=== PATIENT | female | born 1975 | race Caucasian/White ===

== ENCOUNTER 2017-06-24 19:34 | Emergency (ER) | payer OTHER, SELFPAY ==
[2017-06-24 19:41] VITALS: BP 149/89; PULSE 93; RESP 16; TEMP 36.8; O2SAT 97; BMI 36.1
[2017-06-24 20:12] LABS: Microscopic, Urine URINE MICROSCOPIC (MICROSCOPIC)
[2017-06-24 20:15] LABS: Basophils # 0.1 K/mm3 (0-0.2); Basophils % 0.9 % (0.1-2.0); Eosinophils # 0.5 K/mm3 (0.0-0.4); Eosinophils % 4.7 % (0.1-12.0); Hematocrit 42.8 % (37.0-47.0); Hemoglobin 14.4 g/dL (12.2-16.2); Lymphocytes # 2.6 K/mm3 (0.7-4.5); Lymphocytes % 27.9 K/mm3 (10-50); Mean Corpuscular HGB Conc 33.5 g/dL (31.8-35.4); Mean Corpuscular Hemoglobin 32.3 pg (27.0-31.2); Mean Corpuscular Volume 96.3 fl (81-99); Mean Platelet Volume 8.4 fl (7.4-10.4); Monocytes # 0.6 K/mm3 (0.1-1.0); Monocytes % 6.5 % (1.7-9.3); Neutrophils # 5.7 K/mm3 (1.8-7.8); Neutrophils % 60.1 % (37.0-80.0); Platelet Count 313 K/mm3 (142-424); Red Blood Count 4.45 M/mm3 (4.20-5.40); Red Cell Distribution Width 13.2 % (11.5-17.5); White Blood Count 9.5 K/mm3 (4.8-10.8)
--- NOTE | 2017-06-24 20:19 | CT_ITS ---
CT abdomen pelvis wo con CLINICAL INDICATION: Left-sided abdominal pain with vomiting. Prior gastric sleeve surgery ITS.REASON: ABD PAIN ORDERING PHYSICIAN: Tres Baez MD PATIENT AGE: 42 years COMPARISON: 06/04/2016 TECHNIQUE: Axial images obtained with sagittal and coronal reformats. PROCEDURE: Oral Contrast: None IV Contrast: None . FINDINGS: Lung bases are clear. The liver, gallbladder, spleen, adrenal glands, and pancreas are unremarkable. There has been prior gastric sleeve surgery. No renal calculi or hydronephrosis. No ureteral calculi. Unremarkable appendix. No intestinal obstruction or free air. There is a mild amount retained colonic feces. No evidence of diverticulitis. Prior hysterectomy. Isodense changes are present in the right adnexa specious for an ovarian cyst at 2.7 cm. This could be confirmed with pelvic ultrasound. No acute bony anomalies. IMPRESSION: 1. No acute finding. 2. Possible right ovarian cyst
[2017-06-24 20:22] LABS: Appearance,Urine CLEAR (Clear); Bilirubin,Urine Negative (Negative); Blood, Urine TRACE-I (Negative); Color,Urine YELLOW (Yellow); Glucose,Urine (UA) Negative (Negative); Ketones,Urine Negative (Negative); Leukocyte Esterase,Urine Negative (Negative); Nitrate,Urine Negative (Negative); Protein,Urine Negative (Negative); Specific Gravity, Urine <= 1.005 (1.005-1.030); Urobilinogen,Urine 0.2 EU/dl (0.2)
[2017-06-24 20:24] LABS: Amorphous Sediment,Urine Trace /lpf; RBC,Urine Occasional #/hpf (0-3)
[2017-06-24 20:31] LABS: Alanine Aminotransferase 19 U/L (12-78); Albumin Level 3.7 gm/dL (3.4-5.0); Albumin/Globulin Ratio 0.9 (1.1-1.8); Alkaline Phosphatase 92 U/L (46-116); Amylase 55 U/L (25-125); Anion Gap 9.9 mEq/L (5-15); Aspartate Amino Transferase 6 U/L (15-37); Bilirubin,Total 0.1 mg/dL (0.2-1.0); Blood Urea Nitrogen 13 mg/dL (7-18); Calcium 9.2 mg/dL (8.5-10.1); Carbon Dioxide 29 mmol/L (21.0-32.0); Chloride 106 mmol/L (98-107); Creatinine Clearance Estimated 202 mL/min (0-300); Creatinine,Serum 0.63 mg/dL (0.55-1.02); Estimated Glomerular Filt Rate 105 ml/min (>60); GFR (African American) 127 ML/MIN (>60); Globulin 4.2 gm/dl (1.3-3.2); Glucose 67 mg/dL (74-106); Lipase 167 u/L (73-393); Potassium 3.9 mmoL/L (3.5-5.1); Sodium 141 mmol/L (136-145); Total Protein,Serum 7.9 gm/dL (6.4-8.2)
--- NOTE | 2017-06-24 20:34 | PC.NURSE ---
Pt. to CT
--- NOTE | 2017-06-24 20:47 | HMH.EDNVD ---
ED Disposition Clinical Impression: Abdominal pain Qualifiers: Abdominal location: left upper quadrant Qualified Code(s): R10.12 - Left upper quadrant pain Disposition: Home, Self-Care Condition on Discharge: Good Instructions: DI for Acute Abdomen Additional Instructions: call pcp for follow up Referrals: Makeda Flores APRN [Primary Care Provider] - - Critical Care Critical Care Time: No Attestation: On 06/24/17, the high probability of a clinically significant, sudden or life threatening deterioration of the following system(s) required my full and direct attention, intervention and personal management. The time I documented below is in addition to time spent performing reported procedures but includes the following listed in this critical care notation. Medical Decision Making - Medical Records Medical records reviewed: Yes: I reviewed the patient's medical records. Vital Signs: 06/24/17 19:41 Temperature 98.2 F Temperature Source Oral Pulse Rate [Right Brachial] 93 H Respiratory Rate 16 Blood Pressure [Right Arm] 149/89 Blood Pressure Mean [Right Arm] 109 Blood Pressure Source [Right Arm] Automatic Cuff Blood Pressure Position [Right Arm] Sitting 02 Sat by Pulse Oximetry 97 Oxygen Delivery Method Room Air - Lab Data Lab results reviewed: Yes: I reviewed the patient's lab results. Lab Results 06/24/17 19:50: Urine Color Yellow, Urine Appearance Clear, Urine pH 6.0, Ur Specific [place] <= 1.005, Urine Protein Negative, Urine Glucose (UA) Negative, Urine Ketones Negative, Urine Blood Trace-i, Urine Nitrate Negative, Urine Bilirubin Negative, Urine Urobilinogen 0.2, Ur Leukocyte Esterase Negative, Urine RBC Occasional, Amorphous Sediment Trace 06/24/17 20:00: WBC 9.5, RBC 4.45, Hgb 14.4, Hct 42.8, MCV 96.3, MCH 32.3 H, MCHC 33.5, RDW 13.2, Plt Count 313, MPV 8.4, Neut % (Auto) 60.1, Lymph % (Auto) 27.9, [place] % (Auto) 6.5, Eos % (Auto) 4.7, Baso % (Auto) 0.9, Neut # (Auto) 5.7, Lymph # (Auto) 2.6, [place] # (Auto) 0.6, Eos # (Auto) 0.5 H, Baso # (Auto) 0.1 06/24/17 20:00: Sodium 141, Potassium 3.9, Chloride 106, Carbon Dioxide 29, Anion Gap 9.9, BUN 13, Creatinine 0.63, Estimated Creat Clear 202, Estimated GFR 105, Est GFR ( Amer) 127, Glucose 67 L, Calcium 9.2, Total Bilirubin 0.1 L, AST 6 L, ALT 19, Alkaline Phosphatase 92, Total Protein 7.9, Albumin 3.7, Globulin 4.2 H, Albumin/Globulin Ratio 0.9 L, Amylase 55, Lipase 167 Result diagrams: 06/24/17 20:00 06/24/17 20:00 Orders (Tests/Meds): ED MEDICATIONS Discontinued Medications Generic Name Dose Route Start Last Admin Trade Name Freq PRN Reason Stop Dose Admin Hydromorphone HCl 1 mg 06/24/17 20:51 Dilaudid 2mg/Ml Syringe IV 06/24/17 20:52 ONCE ONE Morphine Sulfate 4 mg 06/24/17 21:04 06/24/17 21:04 Morphine 4mg/Ml Syringe IV 06/24/17 21:05 4 mg ONCE ONE Administration Promethazine HCl 12.5 mg 06/24/17 20:52 06/24/17 20:52 Phenergan 25mg/Ml 1ml Vial IV 06/24/17 20:53 12.5 mg ONCE ONE Administration Sodium Chloride 25 ml 06/24/17 20:52 Sod Chlor 0.9% 25ml Bag IV 06/24/17 20:53 ONCE ONE ORDERS Category Date Time Status CT abdomen pelvis wo con Stat Cat Scan 06/24/17 20:19 Taken - CT Data CT Scan: Abdomen, Pelvis Time Received: 22:[address] Reviewed: Yes: I have viewed the radiologist's interpretation Preliminary Findings: Normal/NAD - Brock Inquiry Pt receiving controlled substance: No Nausea/Vomiting/Diarrhea HPI - General Chief complaint: Abdominal Pain Stated complaint: Abdominal pain, vomiting, nausea Time Seen by Provider: 06/24/17 20:10 Mode of Arrival: Ambulatory Limitations: No Limitations Description of Symptoms (Recalled from ER Triage Doc. by RN): LUQ ABD PAIN SINCE YESTERDAY WITH NAUSEA AND VOMITING, WORSE AFTER EATING - History of Present Illness HPI Narrative: progressive upper abd pain worse with meals MD complaint: nausea, vomiting,
--- NOTE | 2017-06-24 20:50 | ED_ITS ---
ED Disposition Clinical Impression: Abdominal pain Qualifiers: Abdominal location: left upper quadrant Qualified Code(s): R10.12 - Left upper quadrant pain Disposition: Home, Self-Care Condition on Discharge: Good Instructions: DI for Acute Abdomen Additional Instructions: call pcp for follow up Referrals: Makeda Flores APRN [Primary Care Provider] - - Critical Care Critical Care Time: No Attestation: On 06/24/17, the high probability of a clinically significant, sudden or life threatening deterioration of the following system(s) required my full and direct attention, intervention and personal management. The time I documented below is in addition to time spent performing reported procedures but includes the following listed in this critical care notation. Medical Decision Making - Medical Records Medical records reviewed: Yes: I reviewed the patient's medical records. Vital Signs: 06/24/17 19:41 Temperature 98.2 F Temperature Source Oral Pulse Rate [Right Brachial] 93 H Respiratory Rate 16 Blood Pressure [Right Arm] 149/89 Blood Pressure Mean [Right Arm] 109 Blood Pressure Source [Right Arm] Automatic Cuff Blood Pressure Position [Right Arm] Sitting 02 Sat by Pulse Oximetry 97 Oxygen Delivery Method Room Air - Lab Data Lab results reviewed: Yes: I reviewed the patient's lab results. Lab Results 06/24/17 19:50: Urine Color Yellow, Urine Appearance Clear, Urine pH 6.0, Ur Specific [place] <= 1.005, Urine Protein Negative, Urine Glucose (UA) Negative, Urine Ketones Negative, Urine Blood Trace-i, Urine Nitrate Negative, Urine Bilirubin Negative, Urine Urobilinogen 0.2, Ur Leukocyte Esterase Negative, Urine RBC Occasional, Amorphous Sediment Trace 06/24/17 20:00: WBC 9.5, RBC 4.45, Hgb 14.4, Hct 42.8, MCV 96.3, MCH 32.3 H, MCHC 33.5, RDW 13.2, Plt Count 313, MPV 8.4, Neut % (Auto) 60.1, Lymph % (Auto) 27.9, [place] % (Auto) 6.5, Eos % (Auto) 4.7, Baso % (Auto) 0.9, Neut # (Auto) 5.7 , Lymph # (Auto) 2.6, [place] # (Auto) 0.6, Eos # (Auto) 0.5 H, Baso # (Auto) 0.1 06/24/17 20:00: Sodium 141, Potassium 3.9, Chloride 106, Carbon Dioxide 29, Anion Gap 9.9, BUN 13, Creatinine 0.63, Estimated Creat Clear 202, Estimated GFR 105, Est GFR ( Amer) 127, Glucose 67 L, Calcium 9.2, Total Bilirubin 0.1 L, AST 6 L, ALT 19, Alkaline Phosphatase 92, Total Protein 7.9, Albumin 3.7 , Globulin 4.2 H, Albumin/Globulin Ratio 0.9 L, Amylase 55, Lipase 167 Result diagrams: 06/24/17 20:00 06/24/17 20:00 Orders (Tests/Meds): ED MEDICATIONS Discontinued Medications Generic Name Dose Route Start Last Admin Trade Name Freq PRN Reason Stop Dose Admin Hydromorphone HCl 1 mg 06/24/17 20:51 Dilaudid 2mg/Ml Syringe IV 06/24/17 20:52 ONCE ONE Morphine Sulfate 4 mg 06/24/17 21:04 06/24/17 21:04 Morphine 4mg/Ml Syringe IV 06/24/17 21:05 4 mg ONCE ONE Administration Promethazine HCl 12.5 mg 06/24/17 20:52 06/24/17 20:52 Phenergan 25mg/Ml 1ml Vial IV 06/24/17 20:53 12.5 mg ONCE ONE Administration Sodium Chloride 25 ml 06/24/17 20:52 Sod Chlor 0.9% 25ml Bag IV 06/24/17 20:53 ONCE ONE ORDERS Category Date Time Status CT abdomen pelvis wo con Stat Cat Scan 06/24/17 20:19 Taken - CT Data CT Scan: Abdomen, Pelvis Time Received: 22:[address] R
[2017-06-24 22:42] VITALS: BP 131/77; PULSE 84; RESP 16; TEMP 36.3; O2SAT 100
== END 2017-06-24 22:43 | disposition home or self-care (01) ==
PROVIDERS: Emergency Medicine; Emergency Provider Emergency Medicine; Family Provider Nurse Practitioner Family; PCP Nurse Practitioner Family
DX: R10.12 Left upper quadrant pain (principal)
CPT/HCPCS: 74176; 80053; 81001; 82150; 83690; 85025; 96374; 96375; 99282

== ENCOUNTER 2017-07-31 19:54 | Emergency (ER) | payer OTHER, SELFPAY ==
[2017-07-31 20:05] VITALS: BP 144/86; PULSE 83; RESP 16; TEMP 36.8; O2SAT 100; BMI 36.8
--- NOTE | 2017-07-31 20:16 | CT_ITS ---
CT head/brain wo con HISTORY: Facial numbness, paresthesias ITS.REASON: facial numbness ORDERING PHYSICIAN: Tres Baez MD PATIENT AGE: 42 years COMPARISON: None TECHNIQUE: Axial images obtained without contrast. Brain and bone windows reviewed. FINDINGS: No midline shift, mass effect, intracranial hemorrhage, hydrocephalus, or extra-axial fluid collection is evident. The calvarium has an unremarkable appearance. No mastoid effusion. No sinus air-fluid levels.. IMPRESSION: Negative CT head without contrast. No acute finding.
--- NOTE | 2017-07-31 20:29 | HMH.EDHA ---
ED Disposition Clinical Impression: Headache Qualifiers: Headache type: unspecified Headache chronicity pattern: acute headache Intractability: not intractable Qualified Code(s): R51 - Headache Disposition: Home, Self-Care Condition on Discharge: Good Instructions: DI for Headache Additional Instructions: call dr for follow up Referrals: Makeda Flores APRN [Primary Care Provider] - - Critical Care Critical Care Time: No Attestation: On 07/31/17, the high probability of a clinically significant, sudden or life threatening deterioration of the following system(s) required my full and direct attention, intervention and personal management. The time I documented below is in addition to time spent performing reported procedures but includes the following listed in this critical care notation. Medical Decision Making - Medical Records Medical records reviewed: Yes: I reviewed the patient's medical records. - Brock Inquiry Pt receiving controlled substance: No Vital Signs: 07/31/17 20:05 07/31/17 21:55 Temperature 98.2 F 98.2 F Temperature Source Oral Oral Pulse Rate [Right Brachial] 83 81 Respiratory Rate 16 20 Blood Pressure [Right Arm] 144/86 152/97 Blood Pressure Mean [Right Arm] 105 115 Blood Pressure Source [Right Arm] Automatic Cuff Automatic Cuff Blood Pressure Position [Right Arm] Sitting Sitting 02 Sat by Pulse Oximetry 100 97 Oxygen Delivery Method Room Air Room Air - Lab Data Lab results reviewed: Yes: I reviewed the patient's lab results. Lab Results 07/31/17 20:25: WBC 11.1 H, RBC 4.32, Hgb 14.3, Hct 41.8, MCV 96.8, MCH 33.2 H, MCHC 34.3, RDW 13.2, Plt Count 297, MPV 8.6, Neut % (Auto) 65.3, Lymph % (Auto) 26.5, [place] % (Auto) 4.7, Eos % (Auto) 2.9, Baso % (Auto) 0.6, Neut # (Auto) 7.2, Lymph # (Auto) 2.9, [place] # (Auto) 0.5, Eos # (Auto) 0.3, Baso # (Auto) 0.1 07/31/17 20:25: Sodium 140, Potassium 3.7, Chloride 104, Carbon Dioxide 28, Anion Gap 11.7, BUN 16, Creatinine 0.59, Estimated Creat Clear 220, Estimated GFR 113, Est GFR ( Amer) 137, Glucose 100, Calcium 9.0, Total Bilirubin 0.2, AST 8 L, ALT 17, Alkaline Phosphatase 90, Total Creatine Kinase 67, CK-MB (CK-2) 0.6, CK-MB (CK-2) Rel Index 0.9, Troponin I < 0.02, Total Protein 7.8, Albumin 3.6, Globulin 4.2 H, Albumin/Globulin Ratio 0.9 L 07/31/17 20:25: ESR 34 H Result diagrams: 07/31/17 20:25 07/31/17 20:25 - CT Data CT Scan: Head Time Received: 20:[address] Reviewed: Yes: I have viewed the radiologist's interpretation Preliminary Findings: Normal/NAD Headache HPI - General Chief Complaint: Eye Problems Stated Complaint: hurts to swollow, pain in face Time Seen by Provider: 07/31/17 20:29 Mode of Arrival: Ambulatory Source of Information: Patient, Medical Record Limitations: No Limitations Description of Symptoms (Recalled from ER Triage Doc. by RN): reports trouble with eyelid closing, pain in the right side of face, as well as difficulty swallowing that started today. sister has a hx of bells palsy; pt also has hx of mastol activation, & sonia-danlos - History of Present Illness HPI Narrative: this wf who awoke with rt sided bentley this am with feeling of rt facial numbness and diff with swallowing and opening rt eye - eye sx intermittent and diff with swallwing tonight - no fever/rash or trauma - feels like some diff with word finding but no speech abn or sensory/motor loss MD Complaint: headache Onset (ago): hour(s) Onset description: awoke with symptoms Location: right Severity: moderate Quality: throbbing, different than previous headaches Treatments prior to arrival: none - Related Data Home Medications Medication Instructions Recorded Confirmed Cyanocobalamin (Vitamin B-12) 5,000 mcg PO DAILY 07/31/17 07/31/17 [Vitamin B12 5mg Tab] EPINEPHrine [Epipen] 0.3 mg IJ ONCE 07/31/17 07/31/17 Ergocalciferol (Vitamin D2) 400 unit PO DAILY 07/31/17 07/31/17 [Vitamin D] Magnesium 30 mg PO DAILY 03
--- NOTE | 2017-07-31 20:32 | ED_ITS ---
ED Disposition Clinical Impression: Headache Qualifiers: Headache type: unspecified Headache chronicity pattern: acute headache Intractability: not intractable Qualified Code(s): R51 - Headache Disposition: Home, Self-Care Condition on Discharge: Good Instructions: DI for Headache Additional Instructions: call dr for follow up Referrals: Makeda Flores APRN [Primary Care Provider] - - Critical Care Critical Care Time: No Attestation: On 07/31/17, the high probability of a clinically significant, sudden or life threatening deterioration of the following system(s) required my full and direct attention, intervention and personal management. The time I documented below is in addition to time spent performing reported procedures but includes the following listed in this critical care notation. Medical Decision Making - Medical Records Medical records reviewed: Yes: I reviewed the patient's medical records. - Brock Inquiry Pt receiving controlled substance: No Vital Signs: 07/31/17 20:05 07/31/17 21:55 Temperature 98.2 F 98.2 F Temperature Source Oral Oral Pulse Rate [Right Brachial] 83 81 Respiratory Rate 16 20 Blood Pressure [Right Arm] 144/86 152/97 Blood Pressure Mean [Right Arm] 105 115 Blood Pressure Source [Right Arm] Automatic Cuff Automatic Cuff Blood Pressure Position [Right Arm] Sitting Sitting 02 Sat by Pulse Oximetry 100 97 Oxygen Delivery Method Room Air Room Air - Lab Data Lab results reviewed: Yes: I reviewed the patient's lab results. Lab Results 07/31/17 20:25: WBC 11.1 H, RBC 4.32, Hgb 14.3, Hct 41.8, MCV 96.8, MCH 33.2 H, MCHC 34.3, RDW 13.2, Plt Count 297, MPV 8.6, Neut % (Auto) 65.3, Lymph % (Auto) 26.5, [place] % (Auto) 4.7, Eos % (Auto) 2.9, Baso % (Auto) 0.6, Neut # (Auto) 7.2 , Lymph # (Auto) 2.9, [place] # (Auto) 0.5, Eos # (Auto) 0.3, Baso # (Auto) 0.1 07/31/17 20:25: Sodium 140, Potassium 3.7, Chloride 104, Carbon Dioxide 28, Anion Gap 11.7, BUN 16, Creatinine 0.59, Estimated Creat Clear 220, Estimated GFR 113, Est GFR ( Amer) 137, Glucose 100, Calcium 9.0, Total Bilirubin 0.2, AST 8 L, ALT 17, Alkaline Phosphatase 90, Total Creatine Kinase 67, CK-MB ( CK-2) 0.6, CK-MB (CK-2) Rel Index 0.9, Troponin I < 0.02, Total Protein 7.8, Albumin 3.6, Globulin 4.2 H, Albumin/Globulin Ratio 0.9 L 07/31/17 20:25: ESR 34 H Result diagrams: 07/31/17 20:25 07/31/17 20:25 - CT Data CT Scan: Head Time Received: 20:[address] Reviewed: Yes: I have viewed the radiologist's interpretation Preliminary Findings: Normal/NAD Headache HPI - General Chief Complaint: Eye Problems Stated Complaint: hurts to swollow, pain in face Time Seen by Provider: 07/31/17 20:29 Mode of Arrival: Ambulatory Source of Information: Patient, Medical Record Limitations: No Limitations Description of Symptoms (Recalled from ER Triage Doc. by RN): reports trouble with eyelid closing, pain in the right side of face, as well as difficulty swallowing that started today. sister has a hx of bells palsy; pt also has hx of mastol activation, & sonia-danlos - History of Present Illness HPI Narrative: this wf who awoke with rt sided [place] this am with feeling of rt facial numbness and diff with swallowing and opening rt eye - eye sx intermittent and diff with swallwing tonight - no fever/rash or trauma - feels like some diff with word finding but no speech abn or sensory/motor loss MD Complaint: headache Onset (ago): hour(s) Onset nadine
--- NOTE | 2017-07-31 20:36 | PC.NURSE ---
PT TO CT AT THIS TIME
[2017-07-31 20:38] LABS: Basophils # 0.1 K/mm3 (0-0.2); Basophils % 0.6 % (0.1-2.0); Eosinophils # 0.3 K/mm3 (0.0-0.4); Eosinophils % 2.9 % (0.1-12.0); Hematocrit 41.8 % (37.0-47.0); Hemoglobin 14.3 g/dL (12.2-16.2); Lymphocytes # 2.9 K/mm3 (0.7-4.5); Lymphocytes % 26.5 K/mm3 (10-50); Mean Corpuscular HGB Conc 34.3 g/dL (31.8-35.4); Mean Corpuscular Hemoglobin 33.2 pg (27.0-31.2); Mean Corpuscular Volume 96.8 fl (81-99); Mean Platelet Volume 8.6 fl (7.4-10.4); Monocytes # 0.5 K/mm3 (0.1-1.0); Monocytes % 4.7 % (1.7-9.3); Neutrophils # 7.2 K/mm3 (1.8-7.8); Neutrophils % 65.3 % (37.0-80.0); Platelet Count 297 K/mm3 (142-424); Red Blood Count 4.32 M/mm3 (4.20-5.40); Red Cell Distribution Width 13.2 % (11.5-17.5); White Blood Count 11.1 K/mm3 (4.8-10.8)
--- NOTE | 2017-07-31 20:45 | PC.NURSE ---
pt back from ct
[2017-07-31 21:15] LABS: Alanine Aminotransferase 17 U/L (12-78); Albumin Level 3.6 gm/dL (3.4-5.0); Albumin/Globulin Ratio 0.9 (1.1-1.8); Alkaline Phosphatase 90 U/L (46-116); Anion Gap 11.7 mEq/L (5-15); Aspartate Amino Transferase 8 U/L (15-37); Bilirubin,Total 0.2 mg/dL (0.2-1.0); Blood Urea Nitrogen 16 mg/dL (7-18); CKMB Relative Index 0.9 U/L (0-4.0); Carbon Dioxide 28 mmol/L (21.0-32.0); Chloride 104 mmol/L (98-107); Creatine Kinase 67 U/L (26-192); Creatine Kinase MB 0.6 mg/ml (0.0-3.6); Creatinine Clearance Estimated 220 mL/min (0-300); Creatinine,Serum 0.59 mg/dL (0.55-1.02); Erythrocyte Sedimentation Rate 34 mm/hr (0-20); Estimated Glomerular Filt Rate 113 ml/min (>60); GFR (African American) 137 ML/MIN (>60); Globulin 4.2 gm/dl (1.3-3.2); Glucose 100 mg/dL (74-106); Potassium 3.7 mmoL/L (3.5-5.1); Sodium 140 mmol/L (136-145); Total Protein,Serum 7.8 gm/dL (6.4-8.2); Troponin I < 0.02 ng/ml (0.00-0.06)
[2017-07-31 21:55] VITALS: BP 152/97; PULSE 81; RESP 20; TEMP 36.8; O2SAT 97
[2017-07-31 23:11] VITALS: BP 142/89; PULSE 85; RESP 18; TEMP 36.8; O2SAT 99
[2017-07-31 23:25] VITALS: BP 126/82; PULSE 89; RESP 18; TEMP 36.7
== END 2017-07-31 23:30 | disposition home or self-care (01) ==
PROVIDERS: Emergency Provider Emergency Medicine; Family Provider Nurse Practitioner Family; PCP Nurse Practitioner Family
DX: R51 Headache (principal); G50.1 Atypical facial pain; Z79.899 Other long term (current) drug therapy
CPT/HCPCS: 70450; 80053; 82550; 82553; 84484; 85025; 85651; 96365; 96375; 99211; 99283

== ENCOUNTER → 2018-05-03 12:48 | Outpatient (CLI) | payer OTHER, SELFPAY ==
--- NOTE | 2018-05-03 12:50 | MR_ITS ---
MR head/brain wo con HISTORY: Syncope and collapse with chronic headache increasing in frequency and duration with dizziness ITS.REASON: SYNCOPE AND COLLAPSE ORDERING PHYSICIAN: Makeda Flores PATIENT AGE: 43 years Comparison: 02/26/2015 TECHNIQUE: Standard multiplanar multiecho sequences are performed without contrast. FINDINGS: No midline shift, mass effect, intracranial hemorrhage, or hydrocephalus is evident. There are scattered T2 white matter hyperintensities once again noted which are mainly in the frontal lobes and along the frontal horn of the right lateral ventricle. These do not appear significantly changed. No new lesions are identified. There is one small subcortical lesion in the right anterior parietal region only slightly more prominent possibly due to the slice orientation. No lesions are evident within the corpus callosum, midbrain, or upper cervical cord. No evidence of acute infarction. No restricted diffusion There is a partial and the sella as a normal variant. No pituitary mass. The optic has some, corpus callosum, and craniocervical junction have an unremarkable appearance. No cerebellar ectopia. Unremarkable hippocampal gyri. No mastoid effusion or sinus air-fluid level. There is mild mucosal thickening in the right maxillary sinus posteriorly. IMPRESSION: Overall stable MRI appearance of the brain. There are scattered T2 white matter hyperintensities which are basically stable. The right subcortical anterior parietal lesion is slightly more prominent but could be related to the slice orientation. As mentioned previously. A demyelinating process is a consideration such as multiple sclerosis. Ischemic gliotic change from microvascular disease or migraine headache is included in the differential diagnosis. Otherwise negative MRI of the brain without contrast
== END ==
PROVIDERS: PCP Nurse Practitioner Family; Visit Provider Nurse Practitioner Family
DX: R55 Syncope and collapse (principal)
CPT/HCPCS: 70551